=== PATIENT | male | born 1995 | race African-American/Black ===

== ENCOUNTER 2023-04-08 06:58 | Emergency (ER) | payer SELFPAY ==
[~2023-04-08] VITALS: Ht 172.7 cm; Wt 63.0 kg
[2023-04-08 07:14] VITALS: TEMP 98.5; O2SAT 100
[2023-04-08] MEDS ORDERED: IBUPROFEN 600MG TABLET PO ONE (08:30)
[2023-04-08 08:38] VITALS: BP 117/44; PULSE 58; RESP 12
[2023-04-08] MEDS ORDERED: IBUP-2029 MT (09:09)
== END 2023-04-08 09:45 | disposition home or self-care (01) ==
LOC: ER 06:58
DX: M25.512 Pain in left shoulder (principal); J45.909 Unspecified asthma, uncomplicated; V03.19XA Pedestrian with other conveyance injured in collision with car, pick-up truck or van in traffic accident, initial encounter; Y93.89 Activity, other specified; Y92.89 Other specified places as the place of occurrence of the external cause; Y99.8 Other external cause status
CPT/HCPCS: 73030; 99283